=== PATIENT | female | born 1965 | race Caucasian/White ===

== ENCOUNTER 2022-05-14 22:44 | Inpatient (IN) | payer OTHER, SELFPAY ==
[2022-05-14 22:46] VITALS: BP 153/91; PULSE 87; RESP 16; TEMP 37; O2SAT 97; BMI 18.8
[2022-05-14 22:48] VITALS: PULSE 130
[2022-05-15] VITALS (24 sets, daily range): BP systolic 108–165; BP diastolic 60–98; PULSE 79–100; RESP 16–22; TEMP 36.4–37; O2SAT 93–100; BMI 18.1; BMI 18.4
--- NOTE | 2022-05-15 00:11 | PC.NURSE ---
Rechecked pt. No needs voiced at this time.
[2022-05-15 00:33] LABS: Basophils # 0.1 K/mm3 (0-0.2); Basophils % 0.6 % (0.1-2.0); Eosinophils # 0.1 K/mm3 (0.0-0.4); Eosinophils % 0.6 % (0.1-12.0); Hemoglobin 12.3 g/dL (12.2-16.2); Lymphocytes # 2.8 K/mm3 (0.7-4.5); Mean Corpuscular HGB Conc 33.1 g/dL (31.8-35.4); Mean Corpuscular Hemoglobin 33.5 pg (27.0-31.2); Mean Corpuscular Volume 101.1 fl (81-99); Mean Platelet Volume 7.6 fl (7.4-10.4); Monocytes # 1.1 K/mm3 (0.1-1.0); Monocytes % 6.3 % (1.7-9.3); Neutrophils # 13.4 K/mm3 (1.8-7.8); Neutrophils % 76.5 % (37.0-80.0); Platelet Count 724 K/mm3 (142-424); Red Blood Count 3.66 M/mm3 (4.20-5.40); Red Cell Distribution Width 13.8 % (11.5-17.5); White Blood Count 17.5 K/mm3 (4.8-10.8)
[2022-05-15 00:44] LABS: Alanine Aminotransferase 27 U/L (12-78); Albumin/Globulin Ratio 1.7 (1.1-1.8); Alkaline Phosphatase 243 U/L (38-126); Anion Gap 11.6 mEq/L (5-15); Aspartate Amino Transferase 36 U/L (14-36); Bilirubin,Total 0.7 mg/dl (0.2-1.3); Blood Urea Nitrogen 12 mg/dl (7-17); Calcium 8.1 mg/dl (8.4-10.2); Carbon Dioxide 24 mmol/L (22.0-30.0); Creatinine Clearance Estimated 72 mL/min (50-200); Estimated Glomerular Filt Rate 87 ml/min (>60); GFR (African American) 106 ML/MIN (>60); Globulin 2.4 g/dL (1.3-3.2); Glucose 76 mg/dl (74-100); Total Protein,Serum 6.4 g/dl (6.3-8.2)
[2022-05-15 00:50] LABS: Sodium 104 mmol/L (136-145)
[2022-05-15 00:51] LABS: Chloride 71 mmol/L (98-107); Potassium 2.6 mmoL/L (3.5-5.1)
--- NOTE | 2022-05-15 00:52 | PC.NURSE ---
Erika From lab called with critical sod 107 pot 2.6 chloride 71
--- NOTE | 2022-05-15 00:53 | PC.NURSE ---
Devin notified of labs no new orders at this time
[2022-05-15 00:58] LABS: MANUAL DIFFERENTIAL MANUAL DIFFERENTIAL (MANUAL DIFF)
--- NOTE | 2022-05-15 01:16 | HMH.EDRECH ---
Discharge Plan Disposition Patient Disposition: Admitted As Inpatient Chief Complaint: Recheck/Abnormal Lab/Rx Clinical Impressions Clinical Impression: Hyponatremia, Hypokalemia Discharge ED Provider: Devin (ED)Samir HPI General Chief Complaint: Recheck/Abnormal Lab/Rx Stated Complaint: elan labs Time Seen by Provider: 05/15/22 01:17 Mode of Arrival: Ambulatory Source of Information: Patient Limitations: No Limitations Description of Symptoms (Recalled from ER Triage Doc. by RN): pt states have bloodwork done at pcp today and recieved a call and her potassium was low History of Present Illness HPI narrative: pt was seen by pcp and had abn labs and was asked to present to ed - pt unable to give specific hx and denied any c/o except weakness - has had recent admit at other facility for low na and fall - MD complaint: abnormal lab Initial visit (ago): hour(s) Returns today for: called because of abnormal lab/test Context: called for abnormal lab result Associated symptoms: none Related Data Home Medications Medication Instructions Recorded Confirmed aspirin 81 mg chewable tablet 81 mg PO DAILY heart health 05/14/22 05/15/22 magnesium oxide 400 mg (241.3 mg 400 mg PO DAILY Supplement 05/14/22 05/15/22 magnesium) tablet potassium chloride 10 mEq 10 meq PO DAILY Supplement 05/14/22 05/15/22 tablet,extended release amlodipine 5 mg tablet 5 mg PO DAILY hypertension 05/15/22 05/15/22 escitalopram oxalate 5 mg tablet 5 mg PO DAILY Depression 05/15/22 05/15/22 omeprazole 40 mg capsule,delayed 40 mg PO DAILY GERD 05/15/22 05/15/22 release trazodone 50 mg tablet 50 mg PO HS sleep 05/15/22 05/15/22 triamterene 37.5 1 tab PO DAILY Fluid 05/15/22 05/15/22 mg-hydrochlorothiazide 25 mg tablet (Maxzide-25mg) Previous Rx's Medication Instructions Recorded albuterol sulfate 90 mcg/actuation 2 puff inhalation Q4-6H PRN 01/29/22 aerosol inhaler shortness of breath or wheezing #8.5 grams Allergies Allergy/AdvReac Type Severity Reaction Status Date / Time No Known Allergies Allergy Verified 05/14/22 10:57 [facility] Disclaimer: The information contained in this section may have been updated after the patient was seen, as this information can be updated by other users. Medical History Anxiety Asthma Chronic bronchitis GERD (gastroesophageal reflux disease) HBP (high blood pressure) Hypokalemia Hypomagnesemia Hyponatremia Insomnia Family History Other Cancer Diabetes Hypertension Social History Smoking Status: Current every day smoker tobacco type: cigarettes packs per day: 1 second hand exposure: Yes alcohol intake: current current occupational status: employed Travel in the last 8 weeks: None household members: family housing: house current occupation: [employer] current occupational exposures/hazards: No caffeine: Yes ROS Obtained: Yes All systems reviewed & no additional complaints except as documented Physical Exam General General appearance: alert Head Head exam: normocephalic Eye Eye exam: Present PERRL and EOMI ENT ENT exam: Present mucous membranes moist Neck Neck exam: Present trachea midline Respiratory Respiratory exam: Present normal lung sounds bilaterally; Absent respiratory distress Cardiovascular Cardiovascular exam: Present regular rate and systolic murmur Abdominal Exam Abdominal exam: Present soft Neurological Exam Neurological exam: Present alert and CN II-XII intact; Absent motor sensory deficit Psychiatric Psychiatric exam: Present flat affect Skin Skin exam: Absent rash Medical Decision Making Medical Records Medical records reviewed: Yes I reviewed the patient's medical records. Chevy Inquiry Pt receiving controlled substance: No Vital Signs: 0
[2022-05-15 01:17] LABS: Coronavirus 19, PCR Not Detected (NotDetected); Influenza A, PCR Not Detected (NotDetected); Influenza B, PCR Not Detected (NotDetected)
--- NOTE | 2022-05-15 01:22 | PC.NURSE ---
paged dr camarena
--- NOTE | 2022-05-15 01:25 | XR_ITS ---
PROCEDURE INFORMATION: Exam: XR Chest Exam date and time: 05/15/2022 1:39 AM Age: 56 years old Clinical indication: Abnormal findings; Abnormal diagnostic tests; Other: Low potassium TECHNIQUE: Imaging protocol: Radiologic exam of the chest. Views: 1 view. COMPARISON: [facility] CT CHEST W/ CONTRAST 08/01/2015 1:19 PM FINDINGS: Lungs: Unremarkable. No consolidation. Pleural spaces: Unremarkable. No pleural effusion. No pneumothorax. Heart/Mediastinum: Unremarkable. No cardiomegaly. Bones/joints: Unremarkable. IMPRESSION: No acute findings.
[2022-05-15 01:29] LABS: Magnesium 1.6 mg/dl (1.6-2.3)
[2022-05-15 01:30] LABS: Lactic Acid 0.8 mmol/L (0.7-2.1)
--- NOTE | 2022-05-15 01:32 | ECG_ITS ---
APPROVED REPORT Exam: Resting ECG HR:94 bpm ECG Measurements Heart Rate 94 AXES NH 142 P 85 QRSd 84 QRS 64 QT 371 T -33 QTc 423 Conclusion SINUS RHYTHM WITH FREQUENT SUPRAVENTRICULAR PREMATURE COMPLEXES NONSPECIFIC T-WAVE ABNORMALITY ABNORMAL ECG UNCONFIRMED REPORT Electronically signed by : Loc Clements MD 05/15/2022 08:00:01
--- NOTE | 2022-05-15 01:33 | PC.NURSE ---
House notified of pt admission
[2022-05-15 01:42] LABS: Eosinophils % 2 % (0-3); Lymphocytes % 25 % (10-50); Macrocytosis 1+; Monocytes % 2 % (2-9); Neutrophils % 71 % (42-76); Platelet Estimate Normal; Total Cells Counted 100
--- NOTE | 2022-05-15 01:50 | PC.NURSE ---
Pt incontinent. Pt clothes and sheets changed.
[2022-05-15 02:01] LABS: Thyroid Stimulating Hormone 2.51 uIU/mL (0.465-4.68)
[2022-05-15 02:28] LABS: Creatine Kinase 31 U/L (30-135)
--- NOTE | 2022-05-15 02:41 | CT_ITS ---
PROCEDURE INFORMATION: Exam: CTA Chest With Contrast Exam date and time: 05/15/2022 4:14 AM Age: 56 years old Clinical indication: Shortness of breath; Additional info: Shortness of air, hyponatremia TECHNIQUE: Imaging protocol: Computed tomographic angiography of the chest with contrast. 3D rendering (Not supervised by radiologist): MIP and/or 3D reconstructed images were created by the technologist. Radiation optimization: All CT scans at this facility use at least one of these dose optimization techniques: automated exposure control; mA and/or kV adjustment per patient size (includes targeted exams where dose is matched to clinical indication); or iterative reconstruction. Contrast material: ISOVUE; Contrast volume: 70 ml; Contrast route: INTRAVENOUS (IV); Other protocol: This patient has received 0 known CTs and 0 known cardiac nuclear medicine studies in the 12 months prior to the current study. COMPARISON: CR XR CHEST PORTABLE 05/15/2022 1:39 AM FINDINGS: Pulmonary arteries: There is no defect within the central pulmonary vessels. There is some respiratory motion limiting evaluation of the basilar segmental vessels. Aorta: No aortic aneurysm. No aortic dissection. Lungs: There are small alveolar infiltrates in the anterior aspect of the right upper and middle lobe as well as the lingula. There is some peribronchial thickening bilaterally. Assessment of the segmental pulmonary arteries and parenchyma is somewhat limited due to respiratory motion. Pleural spaces: No pneumothorax. No pleural effusion. Heart: No cardiomegaly. No pericardial effusion. Lymph nodes: No enlarged lymph nodes. Bones/joints: There are degenerative changes of the thoracic spine. Soft tissues: Unremarkable. IMPRESSION: 1. There are small alveolar infiltrates in the anterior aspect of the right upper and middle lobe as well as the lingula. There is some peribronchial thickening bilaterally. Assessment of the segmental pulmonary arteries and parenchyma is somewhat limited due to respiratory motion. 2. There is some peribronchial thickening and small anterior alveolar infiltrates. These findings are not specific and can be seen with airways disease. Small patchy areas of pneumonia may be present as well.
[2022-05-15 02:47] LABS: T4 (Thyroxine) 9.8 ug/dl (5.53-11.0)
--- NOTE | 2022-05-15 02:50 | PC.NURSE ---
Pt arrived to floor via wheelchair @ [phone]
--- NOTE | 2022-05-15 03:32 | EXP.HP ---
History of Present Illness *Admission Date: 05/15/22 *Reason for visit:: Abnormal Labs *History of present illness: Ms. Arreola is a 56-year-old female who presented to [facility] due to abnormal labs. Per Review of patient's charts she was recently admitted to [facility] where she was treated for Hyponatremia and a fall. Recommendations were to go to rehab, but she refused. She had lab testing at a PCP office and was informed to report to the ER due to abnormal labs. In the ER the patient underwent a CMP that showed: Na level of 104, K 2.6, Mag was 1.6. CBC showed a WBC of 17.5. On exam the patient is only oriented to person, she is not oriented to place, time or President. She has no family members at bedside on admission and information for her H/P is taken from her medical record and discussion with the ER Physician Dr. Beltran. The patient will be admitted with initial impression: Hyponatremia, SIRS, Hypokalemia and Encephalopathy. Her records will be requested from her recent hospitalization at [place]. [facility] Disclaimer: The information contained in this section may have been updated after the patient was seen, as this information can be updated by other users. Medical History Anxiety Asthma Chronic bronchitis GERD (gastroesophageal reflux disease) HBP (high blood pressure) Hypokalemia Hypomagnesemia Hyponatremia Insomnia Family History Other Cancer Diabetes Hypertension Social History Smoking Status: Current every day smoker tobacco type: cigarettes packs per day: 1 second hand exposure: Yes alcohol intake: current current occupational status: employed Travel in the last 8 weeks: None household members: family housing: house current occupation: [employer] current occupational exposures/hazards: No caffeine: Yes Review of Systems Review of Systems Review of systems:: unable to obtain Meds Home Medications and Allergies Home Medications Medication Instructions Recorded Confirmed Type albuterol sulfate 90 mcg/actuation 2 puff inhalation Q4-6H PRN 01/29/22 05/15/22 Rx aerosol inhaler shortness of breath or wheezing #8.5 grams aspirin 81 mg chewable tablet 81 mg PO DAILY heart health 05/14/22 05/15/22 History magnesium oxide 400 mg (241.3 mg 400 mg PO BID Supplement 05/14/22 05/15/22 History magnesium) tablet potassium chloride 10 mEq 10 meq PO BID potassium replacement 05/14/22 05/15/22 History tablet,extended release amlodipine 5 mg tablet 5 mg PO DAILY hypertension 05/15/22 05/15/22 History escitalopram oxalate 5 mg tablet 5 mg PO DAILY Depression 05/15/22 05/15/22 History omeprazole 40 mg capsule,delayed 40 mg PO DAILY acid reflux 05/15/22 05/15/22 History release trazodone 50 mg tablet 50 mg PO HS sleep 05/15/22 05/15/22 History triamterene 37.5 1 tab PO DAILY Hypertension 05/15/22 05/15/22 History mg-hydrochlorothiazide 25 mg tablet (Maxzide-25mg) New Prescriptions to Start Prescriptions: Allergies Allergy/AdvReac Type Severity Reaction Status Date / Time No Known Allergies Allergy Verified 05/14/22 10:57 Exam Data for Last 24 hours Vital signs and Labs for Last 24 Hours: Temp Pulse Resp BP Pulse Ox 97.6 F 98 H 18 126/76 95 05/15/22 03:15 05/15/22 03:15 05/15/22 03:15 05/15/22 03:15 05/15/22 03:15 Laboratory Results - last 24 hr 05/15/22 00:04: WBC 17.5 H D, RBC 3.66 L, Hgb 12.3, Hct 37.0, MCV 101.1 H, MCH 33.5 H, MCHC 33.1, RDW 13.8, Plt Count 724 H, MPV 7.6, Neut % (Auto) 76.5, Lymph % (Auto) 16.0, [place] % (Auto) 6.3, Eos % (Auto) 0.6, Baso % (Auto) 0.6, Neut # (Auto) 13.4 H, Lymph # (Auto) 2.8, [place] # (Auto) 1.1 H, Eos # (Auto) 0.1, Baso # (Auto) 0.1, Total Counted 100, Neutrophils % (Manual) 71, Lymphocytes % (Manual)
[2022-05-15 06:16] LABS: Chloride 84 mmol/L (98-107); Potassium 3.1 mmoL/L (3.5-5.1)
[2022-05-15 06:19] LABS: Alanine Aminotransferase 21 U/L (12-78); Albumin Level 3.4 g/dl (3.5-5.0); Albumin/Globulin Ratio 1.3 (1.1-1.8); Alkaline Phosphatase 208 U/L (38-126); Anion Gap 11.1 mEq/L (5-15); Aspartate Amino Transferase 25 U/L (14-36); Bilirubin,Total 0.9 mg/dl (0.2-1.3); Blood Urea Nitrogen 10 mg/dl (7-17); Carbon Dioxide 22 mmol/L (22.0-30.0); Creatinine Clearance Estimated 124 mL/min (50-200); Estimated Glomerular Filt Rate 166 ml/min (>60); GFR (African American) 201 ML/MIN (>60); Globulin 2.6 g/dL (1.3-3.2)
[2022-05-15 06:20] LABS: Glucose 65 mg/dl (74-100)
[2022-05-15 06:24] LABS: Sodium 114 mmol/L (136-145)
--- NOTE | 2022-05-15 09:02 | HMH.PHAINT1 ---
Pharmacy Intervention Comments: HOME MEDICATION RECONCILIATION COMPLETED USING LIST FROM OUTPATIENT PHARMACY
--- NOTE | 2022-05-15 09:02 | EXP.PHA.CONS ---
Pharmacy Consult Date: 05/15/22 Time: 09:02 Referring provider: DR. VASQUEZ Reason for Consult:: VANCOMYCIN DOSING Allergies Allergy/AdvReac Type Severity Reaction Status Date / Time No Known Allergies Allergy Verified 05/14/22 10:57 Home Medications Medication Instructions Recorded Confirmed Type albuterol sulfate 90 mcg/actuation 2 puff inhalation Q4-6H PRN 01/29/22 05/15/22 Rx aerosol inhaler shortness of breath or wheezing #8.5 grams aspirin 81 mg chewable tablet 81 mg PO DAILY heart health 05/14/22 05/15/22 History magnesium oxide 400 mg (241.3 mg 400 mg PO BID Supplement 05/14/22 05/15/22 History magnesium) tablet potassium chloride 10 mEq 10 meq PO BID potassium replacement 05/14/22 05/15/22 History tablet,extended release amlodipine 5 mg tablet 5 mg PO DAILY hypertension 05/15/22 05/15/22 History escitalopram oxalate 5 mg tablet 5 mg PO DAILY Depression 05/15/22 05/15/22 History omeprazole 40 mg capsule,delayed 40 mg PO DAILY acid reflux 05/15/22 05/15/22 History release trazodone 50 mg tablet 50 mg PO HS sleep 05/15/22 05/15/22 History triamterene 37.5 1 tab PO DAILY Hypertension 05/15/22 05/15/22 History mg-hydrochlorothiazide 25 mg tablet (Maxzide-25mg) New Prescriptions to Start Prescriptions: Height: 1.63 m Weight: 49.033 kg Laboratory Results:: Laboratory Results - last 24 hr 05/15/22 00:04: WBC 17.5 H D, RBC 3.66 L, Hgb 12.3, Hct 37.0, MCV 101.1 H, MCH 33.5 H, MCHC 33.1, RDW 13.8, Plt Count 724 H, MPV 7.6, Neut % (Auto) 76.5, Lymph % (Auto) 16.0, [place] % (Auto) 6.3, Eos % (Auto) 0.6, Baso % (Auto) 0.6, Neut # (Auto) 13.4 H, Lymph # (Auto) 2.8, [place] # (Auto) 1.1 H, Eos # (Auto) 0.1, Baso # (Auto) 0.1, Total Counted 100, Neutrophils % (Manual) 71, Lymphocytes % (Manual) 25, Monocytes % (Manual) 2, Eosinophils % (Manual) 2, Platelet Estimate Normal, Macrocytosis 1+ 05/15/22 00:04: Sodium 104 L*, Potassium 2.6 L* D, Chloride 71 L, Carbon Dioxide 24, Anion Gap 11.6, BUN 12, Creatinine 0.70 D, Estimated Creat Clear 72, Estimated GFR 87, Est GFR ( Amer) 106 D, Glucose 76, Calcium 8.1 L, Total Bilirubin 0.7, AST 36, ALT 27, Alkaline Phosphatase 243 H, Total Protein 6.4, Albumin 4.0, Globulin 2.4, Albumin/Globulin Ratio 1.7 05/15/22 00:04: Total Creatine Kinase 31 05/15/22 01:13: Lactate 0.8 05/15/22 01:13: SARS-CoV-2 (PCR) Not detected, Influenza A Untype (PCR) Not detected, Influenza Type B (PCR) Not detected 05/15/22 01:13: TSH 2.51, Thyroxine (T4) 9.8 05/15/22 01:13: Magnesium 1.6 05/15/22 05:54: Sodium 114 L*, Potassium 3.1 L, Chloride 84 L, Carbon Dioxide 22, Anion Gap 11.1, BUN 10, Creatinine 0.40 L D, Estimated Creat Clear 124, Estimated GFR 166, Est GFR ( Amer) 201 D, Glucose 65 L, Calcium 8.0 L, Total Bilirubin 0.9, AST 25 D, ALT 21, Alkaline Phosphatase 208 H, Total Protein 6.0 L, Albumin 3.4 L D, Globulin 2.6, Albumin/Globulin Ratio 1.3 Medical History: Medical History (Updated 05/15/22 @ 07:14 by Samir Beltran (ED)MD) Anxiety Asthma Chronic bronchitis GERD (gastroesophageal reflux disease) HBP (high blood pressure) Hypokalemia Hypomagnesemia Hyponatremia Insomnia Assessment and Plan Assessment and plan all Dx Assessment and Plan for all problems:: Pharmacokinetic dosing service Objective: Patient: Floor: Age: 56 yo Serum creatinine: 0.40 mg/dL Height: 64.2 Inches Weight (kg): 49 Assessment: IBW (kg): 55.16 Dosing wt(kg): 49 Estimated Creatinine clearance (ml/min): 124.4 CRCL method: Cockcroft and Gault using ibw(default). Drug selected: Vancomycin Loading dose (mg): Vd (liters): 36.8 (factor used: 0.75 L/kg) Lucio (hr-1): 0.108 Half life (hrs): 6.42 CLvanco=?? 3.974 L/hr Recommended dose: 750 mg Interval: 8 hrs Infusion time (hrs): 2.0 Predicted peak (mcg/mL): 31.7 Predicted trough
--- NOTE | 2022-05-15 09:17 | EXP.PN ---
Subjective *Date: 05/15/22 *Time: 20:08 Interval history: Date of service May 15, 2022 The patient reports no acute events overnight. She reports that she is feeling better. Nursing staff report that she remains afebrile with stable vital signs and saturating appropriately on room air. We have reviewed and discussed her laboratory results. I personally interpreted her CBC with a white blood cell count of 18,000, hemoglobin of 12, hematocrit of 37 and platelet count 724. Her MCV is elevated at 101. I have personally reviewed and interpreted her sodium 114, potassium 3.1, chloride 84 bicarb 22. Her BUN is 10 and her creatinine is 0.4. Exam Data for Last 24 hours Vital signs and Labs for Last 24 Hours: Temp Pulse Resp BP Pulse Ox 97.7 F 87 17 125/69 98 05/15/22 04:00 05/15/22 07:00 05/15/22 07:00 05/15/22 07:00 05/15/22 07:00 Laboratory Results - last 24 hr 05/15/22 00:04: WBC 17.5 H D, RBC 3.66 L, Hgb 12.3, Hct 37.0, MCV 101.1 H, MCH 33.5 H, MCHC 33.1, RDW 13.8, Plt Count 724 H, MPV 7.6, Neut % (Auto) 76.5, Lymph % (Auto) 16.0, [place] % (Auto) 6.3, Eos % (Auto) 0.6, Baso % (Auto) 0.6, Neut # (Auto) 13.4 H, Lymph # (Auto) 2.8, [place] # (Auto) 1.1 H, Eos # (Auto) 0.1, Baso # (Auto) 0.1, Total Counted 100, Neutrophils % (Manual) 71, Lymphocytes % (Manual) 25, Monocytes % (Manual) 2, Eosinophils % (Manual) 2, Platelet Estimate Normal, Macrocytosis 1+ 05/15/22 00:04: Sodium 104 L*, Potassium 2.6 L* D, Chloride 71 L, Carbon Dioxide 24, Anion Gap 11.6, BUN 12, Creatinine 0.70 D, Estimated Creat Clear 72, Estimated GFR 87, Est GFR ( Amer) 106 D, Glucose 76, Calcium 8.1 L, Total Bilirubin 0.7, AST 36, ALT 27, Alkaline Phosphatase 243 H, Total Protein 6.4, Albumin 4.0, Globulin 2.4, Albumin/Globulin Ratio 1.7 05/15/22 00:04: Total Creatine Kinase 31 05/15/22 01:13: Lactate 0.8 05/15/22 01:13: SARS-CoV-2 (PCR) Not detected, Influenza A Untype (PCR) Not detected, Influenza Type B (PCR) Not detected 05/15/22 01:13: TSH 2.51, Thyroxine (T4) 9.8 05/15/22 01:13: Magnesium 1.6 05/15/22 05:54: Sodium 114 L*, Potassium 3.1 L, Chloride 84 L, Carbon Dioxide 22, Anion Gap 11.1, BUN 10, Creatinine 0.40 L D, Estimated Creat Clear 124, Estimated GFR 166, Est GFR ( Amer) 201 D, Glucose 65 L, Calcium 8.0 L, Total Bilirubin 0.9, AST 25 D, ALT 21, Alkaline Phosphatase 208 H, Total Protein 6.0 L, Albumin 3.4 L D, Globulin 2.6, Albumin/Globulin Ratio 1.3 I & O for Last 24 hours: Intake & Output 05/12/22 05/13/22 05/14/22 05/15/22 23:59 23:59 23:59 23:59 Intake Total 0 / 0 Balance 0 / 0 Weight 49.895 kg 49.033 kg Constitutional Constitutional: no acute distress and cooperative *Routine HEENT Exam Head: Present normocephalic Eye: Present EOMI and PERRL ENT: Present mucous membranes moist *Routine Neck Exam Neck: Present supple; Absent lymphadenopathy *Routine Respiratory Exam Respiratory: Present CTA bilaterally, normal respiratory effort and symmetric chest movement *Routine Cardiovascular Exam Cardiovascular: Present RRR *Routine Abdominal Exam Abdominal: Present soft and normoactive bowel sounds; Absent tenderness *Routine Extremities Exam Extremities: Absent cyanosis, clubbing or edema *Routine Skin Exam Skin: Present warm; Absent rash *Routine Neurological Exam Neurological: Present alert, oriented X3, moving all extremities, vision grossly intact, hearing grossly intact and normal speech Routine Psychiatric Exam Psychiatric: Present normal affect, normal thought process, cooperative and good insight Assessment and Plan *Assessment and plan (1) Hyponatremia: Status: Acute Category: Medical Code(s): E87.1 - Hypo-osmolality and hyponatremia (2) SIRS (systemic inflammatory response syndrome): Status: Acute Category: Medical Code(s): R65.10 - Systemic inflammatory response syndrome (SIRS) of non-infectious origin without acute organ dysfunction (3) Encephalopathy:
[2022-05-15 11:07] LABS: Anion Gap 10.7 mEq/L (5-15); Blood Urea Nitrogen 8 mg/dl (7-17); Carbon Dioxide 21 mmol/L (22.0-30.0); Chloride 92 mmol/L (98-107); Creatinine Clearance Estimated 124 mL/min (50-200); Estimated Glomerular Filt Rate 166 ml/min (>60); GFR (African American) 201 ML/MIN (>60); Glucose 51 mg/dl (74-100); Sodium 121 mmol/L (136-145)
[2022-05-15 11:13] LABS: Potassium 2.7 mmoL/L (3.5-5.1)
--- NOTE | 2022-05-15 11:23 | PC.NURSE ---
1113 critical lab values received from Genia in lab. Na 121 k+ 2.7. results pt name and repeated and verified back 1115 face to face reported lab results on pt to Dr Bangura.
--- NOTE | 2022-05-15 15:02 | PC.NURSE ---
verbal order during huddle with MD. neuro checks q4, bmp q4
--- NOTE | 2022-05-15 15:07 | PC.NURSE ---
When able to focus on conversation pt is alert to self and past situation (i.e. what she did/would do at home). when rounding on pt random conversations appear confused. pt stated to nurse after assessment that her feet were cold and she would just walk to [employer] and get her some warm socks. pt was reoriented to her place and situation. it was explained to pt that she was unable to walk to [employer] to get medication. pt still unsure as to why she was unable to walk to [employer].
[2022-05-15 16:09] LABS: Anion Gap 9.6 mEq/L (5-15); Blood Urea Nitrogen 8 mg/dl (7-17); Calcium 7.8 mg/dl (8.4-10.2); Carbon Dioxide 23 mmol/L (22.0-30.0); Chloride 95 mmol/L (98-107); Creatinine Clearance Estimated 83 mL/min (50-200); Estimated Glomerular Filt Rate 104 ml/min (>60); GFR (African American) 126 ML/MIN (>60); Glucose 74 mg/dl (74-100); Potassium 3.6 mmoL/L (3.5-5.1); Sodium 124 mmol/L (136-145)
--- NOTE | 2022-05-15 18:21 | PC.NURSE ---
pt remains on room air, with no complaints of SOA or pain, intermittent confusion noted at times, telemetry has shown SA
[2022-05-16] VITALS (8 sets, daily range): BP systolic 116–149; BP diastolic 65–81; PULSE 66–87; RESP 15–20; TEMP 36.4–37.3; O2SAT 96–100; BMI 18.4
[2022-05-16 00:05] LABS: Anion Gap 6.3 mEq/L (5-15); Blood Urea Nitrogen 7 mg/dl (7-17); Calcium 7.7 mg/dl (8.4-10.2); Carbon Dioxide 22 mmol/L (22.0-30.0); Chloride 99 mmol/L (98-107); Creatinine Clearance Estimated 100 mL/min (50-200); Estimated Glomerular Filt Rate 129 ml/min (>60); GFR (African American) 156 ML/MIN (>60); Glucose 90 mg/dl (74-100); Potassium 3.3 mmoL/L (3.5-5.1); Sodium 124 mmol/L (136-145)
[2022-05-16 03:32] LABS: Anion Gap 7.2 mEq/L (5-15); Blood Urea Nitrogen 6 mg/dl (7-17); Calcium 7.9 mg/dl (8.4-10.2); Carbon Dioxide 23 mmol/L (22.0-30.0); Chloride 98 mmol/L (98-107); Creatinine Clearance Estimated 100 mL/min (50-200); Estimated Glomerular Filt Rate 129 ml/min (>60); GFR (African American) 156 ML/MIN (>60); Glucose 87 mg/dl (74-100); Potassium 3.2 mmoL/L (3.5-5.1); Sodium 125 mmol/L (136-145)
--- NOTE | 2022-05-16 04:29 | PC.NURSE ---
Pt is A&O with periods of confusion. Behaviors also noted. Pt has to be reminded to keep telemetry on. She states she doesn't like it. Pt has been incontinent of urine. Purewick and brief in place. Pt will remove purewick and brief periodically. Education provided. She used profanity with lab staff. VS have been stable. Medications administered per jun.
[2022-05-16 06:12] LABS: Basophils % 0.4 % (0.1-2.0); Eosinophils # 0.1 K/mm3 (0.0-0.4); Eosinophils % 0.8 % (0.1-12.0); Hematocrit 34.1 % (37.0-47.0); Lymphocytes # 1.4 K/mm3 (0.7-4.5); Lymphocytes % 14.8 % (10-50); Mean Corpuscular HGB Conc 32.2 g/dL (31.8-35.4); Mean Corpuscular Hemoglobin 33.6 pg (27.0-31.2); Mean Corpuscular Volume 104.1 fl (81-99); Monocytes # 0.6 K/mm3 (0.1-1.0); Monocytes % 6.3 % (1.7-9.3); Neutrophils # 7.3 K/mm3 (1.8-7.8); Neutrophils % 77.7 % (37.0-80.0); Platelet Count 342 K/mm3 (142-424); Red Blood Count 3.27 M/mm3 (4.20-5.40); Red Cell Distribution Width 13.7 % (11.5-17.5); White Blood Count 9.4 K/mm3 (4.8-10.8)
[2022-05-16 06:34] LABS: Chloride 100 mmol/L (98-107); Sodium 125 mmol/L (136-145)
[2022-05-16 06:35] LABS: Potassium 3.6 mmoL/L (3.5-5.1)
[2022-05-16 06:37] LABS: Blood Urea Nitrogen 5 mg/dl (7-17); Creatinine Clearance Estimated 166 mL/min (50-200); Estimated Glomerular Filt Rate 232 ml/min (>60); GFR (African American) 281 ML/MIN (>60)
[2022-05-16 06:38] LABS: Anion Gap 6.6 mEq/L (5-15); Calcium 7.7 mg/dl (8.4-10.2); Carbon Dioxide 22 mmol/L (22.0-30.0); Glucose 84 mg/dl (74-100)
[2022-05-16 07:10] LABS: Procalcitonin 0.169 ng/mL (0.0-2.0)
[2022-05-16 11:27] LABS: Chloride 101 mmol/L (98-107); Potassium 3.3 mmoL/L (3.5-5.1); Sodium 128 mmol/L (136-145)
[2022-05-16 11:30] LABS: Anion Gap 7.3 mEq/L (5-15); Blood Urea Nitrogen 4 mg/dl (7-17); Calcium 7.9 mg/dl (8.4-10.2); Carbon Dioxide 23 mmol/L (22.0-30.0); Creatinine Clearance Estimated 166 mL/min (50-200); Estimated Glomerular Filt Rate 232 ml/min (>60); GFR (African American) 281 ML/MIN (>60); Glucose 79 mg/dl (74-100)
--- NOTE | 2022-05-16 19:23 | EXP.PN ---
Subjective *Date: 05/16/22 *Time: 19:23 Interval history: Date of service May 16, 2022 The patient reports no acute events overnight. She reports that she is feeling better. We have reviewed and discussed her morning labs. I have personally interpreted her labs as follows: CBC with an improved leukocytoses and white blood cell count of 9.4, hemoglobin 11, hematocrit 34, MCV 104, platelets 342. Electrolytes identify an improved sodium to 128, potassium 3.3, chloride 101, bicarb 23, BUN 4, creatinine 0.3, glucose trend under 100. She is tolerating her IV antibiotic with no adverse events. Exam Data for Last 24 hours Vital signs and Labs for Last 24 Hours: Temp Pulse Resp BP Pulse Ox 98.1 F 66 17 125/73 100 05/16/22 16:00 05/16/22 16:00 05/16/22 16:00 05/16/22 16:00 05/16/22 16:00 Laboratory Results - last 24 hr 05/15/22 23:00: Sodium 124 L, Potassium 3.3 L, Chloride 99, Carbon Dioxide 22, Anion Gap 6.3, BUN 7, Creatinine 0.50 L, Estimated Creat Clear 100, Estimated GFR 129, Est GFR ( Amer) 156 D, Glucose 90 D, Calcium 7.7 L 05/16/22 03:00: Sodium 125 L, Potassium 3.2 L, Chloride 98, Carbon Dioxide 23, Anion Gap 7.2, BUN 6 L, Creatinine 0.50 L, Estimated Creat Clear 100, Estimated GFR 129, Est GFR ( Amer) 156, Glucose 87, Calcium 7.9 L 05/16/22 05:52: Sodium 125 L, Potassium 3.6, Chloride 100, Carbon Dioxide 22, Anion Gap 6.6, BUN 5 L, Creatinine 0.30 L D, Estimated Creat Clear 166, Estimated GFR 232, Est GFR ( Amer) 281 D, Glucose 84, Calcium 7.7 L 05/16/22 05:52: WBC 9.4 D, RBC 3.27 L, Hgb 11.0 L, Hct 34.1 L, MCV 104.1 H, MCH 33.6 H, MCHC 32.2, RDW 13.7, Plt Count 342 D, MPV 7.0 L, Neut % (Auto) 77.7, Lymph % (Auto) 14.8, [place] % (Auto) 6.3, Eos % (Auto) 0.8, Baso % (Auto) 0.4, Neut # (Auto) 7.3, Lymph # (Auto) 1.4, [place] # (Auto) 0.6, Eos # (Auto) 0.1, Baso # (Auto) 0.0 05/16/22 05:52: Procalcitonin 0.169 05/16/22 11:05: Sodium 128 L, Potassium 3.3 L, Chloride 101, Carbon Dioxide 23, Anion Gap 7.3, BUN 4 L, Creatinine 0.30 L, Estimated Creat Clear 166, Estimated GFR 232, Est GFR ( Amer) 281, Glucose 79, Calcium 7.9 L I & O for Last 24 hours: Intake & Output 05/13/22 05/14/22 05/15/22 05/16/22 23:59 23:59 23:59 23:59 Intake Total 790 / 790 495 / 495 Output Total 0 / 0 0 / 0 Balance 790 / 790 495 / 495 Weight 49.895 kg 49.033 kg 49 kg Constitutional Constitutional: no acute distress and cooperative *Routine HEENT Exam Head: Present normocephalic Eye: Present EOMI and PERRL ENT: Present mucous membranes moist *Routine Neck Exam Neck: Present supple; Absent lymphadenopathy *Routine Respiratory Exam Respiratory: Present CTA bilaterally, normal respiratory effort and symmetric chest movement *Routine Cardiovascular Exam Cardiovascular: Present RRR *Routine Abdominal Exam Abdominal: Present soft and normoactive bowel sounds; Absent tenderness *Routine Extremities Exam Extremities: Absent cyanosis, clubbing or edema *Routine Skin Exam Skin: Present warm; Absent rash *Routine Neurological Exam Neurological: Present alert, oriented X3, moving all extremities, vision grossly intact, hearing grossly intact and normal speech Routine Psychiatric Exam Psychiatric: Present normal affect, normal thought process, cooperative and good insight Assessment and Plan *Assessment and plan (1) Hyponatremia: Status: Acute Category: Medical Code(s): E87.1 - Hypo-osmolality and hyponatremia (2) SIRS (systemic inflammatory response syndrome): Status: Acute Category: Medical Code(s): R65.10 - Systemic inflammatory response syndrome (SIRS) of non-infectious origin without acute organ dysfunction (3) Encephalopathy: Status: Acute Category: Medical Code(s): G93.40 - Encephalopathy, unspecified (4) Hypokalemia: Status: Acute Category: Medical Code(s): E87.6 - Hypokalemia (5) Hypomagnesemia: Status: Acute
--- NOTE | 2022-05-16 19:48 | PC.NURSE ---
pt has been resistive to care this shift with confusion at times, remains on room air, no complaints of pain or SOA
[2022-05-16 21:42] LABS: MRSA DNA PCR NEGATIVE
--- NOTE | 2022-05-16 23:40 | PC.NURSE ---
pt pulled out IV right forearm, this RN, Ronit RN from ED, and Change Analyst attempted to place another IV but pt refuses; notified MD Willem MD attempted to place IV without success, stated okay to leave IV out, will switch antibiotics to PO
[2022-05-17] VITALS (9 sets, daily range): BP systolic 122–145; BP diastolic 68–95; PULSE 61–85; RESP 16–20; TEMP 36.4–36.8; O2SAT 98–100; BMI 16.9
[2022-05-17 06:47] LABS: Peripheral Smear Review Scanned Result
[2022-05-17 07:11] LABS: Anion Gap 7.7 mEq/L (5-15); Blood Urea Nitrogen 4 mg/dl (7-17); Calcium 8.2 mg/dl (8.4-10.2); Carbon Dioxide 23 mmol/L (22.0-30.0); Chloride 100 mmol/L (98-107); Creatinine Clearance Estimated 115 mL/min (50-200); Estimated Glomerular Filt Rate 166 ml/min (>60); GFR (African American) 201 ML/MIN (>60); Glucose 80 mg/dl (74-100); Potassium 3.7 mmoL/L (3.5-5.1); Sodium 127 mmol/L (136-145)
[2022-05-17 07:57] LABS: Vitamin B12 425 pg/mL (239-931)
--- NOTE | 2022-05-17 14:07 | EXP.PN ---
Subjective *Date: 05/17/22 *Time: 14:07 Interval history: Date of service May 17, 2022 The patient reports no acute events overnight. Nursing staff report that she remains afebrile with stable vital signs and saturating appropriately on room air. She is inquiring about discharge home. Her sodium is at 127. Her B12 level is normal. Exam Data for Last 24 hours Vital signs and Labs for Last 24 Hours: Temp Pulse Resp BP Pulse Ox 97.9 F 71 16 123/70 100 05/17/22 12:00 05/17/22 12:00 05/17/22 12:00 05/17/22 12:00 05/17/22 12:00 Laboratory Results - last 24 hr 05/15/22 01:13: Serum Osmolality 211 L 05/15/22 04:50: MRSA (PCR) Negative 05/17/22 06:23: Sodium 127 L, Potassium 3.7, Chloride 100, Carbon Dioxide 23, Anion Gap 7.7, BUN 4 L, Creatinine 0.40 L D, Estimated Creat Clear 115, Estimated GFR 166, Est GFR ( Amer) 201 D, Glucose 80, Calcium 8.2 L, Vitamin B12 425 I & O for Last 24 hours: Intake & Output 05/14/22 05/15/22 05/16/22 05/17/22 23:59 23:59 23:59 23:59 Intake Total 790 / 790 495 / 495 240 / 240 Output Total 0 / 0 0 / 0 0 / 0 Balance 790 / 790 495 / 495 240 / 240 Weight 49.895 kg 49.033 kg 49 kg 45.161 kg Microbiology Reports for the Last 24 Hours: Microbiology 05/15/22 05:54 Blood Blood Culture - Preliminary NO GROWTH AFTER 48 HOURS 05/15/22 05:54 Blood Blood Culture - Preliminary NO GROWTH AFTER 48 HOURS 05/15/22 01:13 Blood Blood Culture - Preliminary NO GROWTH AFTER 48 HOURS 05/15/22 01:13 Blood Blood Culture - Preliminary NO GROWTH AFTER 48 HOURS Constitutional Constitutional: no acute distress and cooperative *Routine HEENT Exam Head: Present normocephalic Eye: Present EOMI and PERRL ENT: Present mucous membranes moist *Routine Neck Exam Neck: Present supple; Absent lymphadenopathy *Routine Respiratory Exam Respiratory: Present CTA bilaterally, normal respiratory effort and symmetric chest movement *Routine Cardiovascular Exam Cardiovascular: Present RRR *Routine Abdominal Exam Abdominal: Present soft and normoactive bowel sounds; Absent tenderness *Routine Extremities Exam Extremities: Absent cyanosis, clubbing or edema *Routine Skin Exam Skin: Present warm; Absent rash *Routine Neurological Exam Neurological: Present alert, oriented X3, moving all extremities, vision grossly intact, hearing grossly intact and normal speech Routine Psychiatric Exam Psychiatric: Present normal affect, normal thought process, cooperative and good insight Assessment and Plan *Assessment and plan (1) Hyponatremia: Status: Acute Category: Medical Code(s): E87.1 - Hypo-osmolality and hyponatremia (2) SIRS (systemic inflammatory response syndrome): Status: Acute Category: Medical Code(s): R65.10 - Systemic inflammatory response syndrome (SIRS) of non-infectious origin without acute organ dysfunction (3) Encephalopathy: Status: Acute Category: Medical Code(s): G93.40 - Encephalopathy, unspecified (4) Hypokalemia: Status: Acute Category: Medical Code(s): E87.6 - Hypokalemia (5) Hypomagnesemia: Status: Acute Category: Medical Code(s): E83.42 - Hypomagnesemia Plan 56-year-old female with history of recent hospitalization for hyponatremia and fall presents from PCP office due to abnormal labs. Problems addressed as follows: Hyponatremia Resolving 104 on admission, only oriented to person, unsure of patient's baseline Records show a recent hospitalization at [place], records have been requested Urine sodium, urine osmolality and serum osmolality ordered, euvolemic appearing on exam Concern for SIADH due to extreme levels Hypertonic saline completed Goal no more than 10 mmol correction in 24 hours Monitoring on telemetry CT chest reviewed with conc
[2022-05-18] VITALS (7 sets, daily range): BP systolic 120–145; BP diastolic 67–76; PULSE 64–92; RESP 16–20; TEMP 36.3–36.5; O2SAT 99–100; BMI 17.4
[2022-05-18 07:49] LABS: Anion Gap 5.8 mEq/L (5-15); Blood Urea Nitrogen 4 mg/dl (7-17); Calcium 8.1 mg/dl (8.4-10.2); Carbon Dioxide 23 mmol/L (22.0-30.0); Chloride 99 mmol/L (98-107); Creatinine Clearance Estimated 157 mL/min (50-200); Estimated Glomerular Filt Rate 232 ml/min (>60); GFR (African American) 281 ML/MIN (>60); Glucose 82 mg/dl (74-100); Magnesium 1.5 mg/dl (1.6-2.3); Potassium 3.8 mmoL/L (3.5-5.1); Sodium 124 mmol/L (136-145)
[2022-05-18 07:56] LABS: Basophils % 0.5 % (0.1-2.0); Eosinophils # 0.1 K/mm3 (0.0-0.4); Eosinophils % 1.1 % (0.1-12.0); Hematocrit 30.3 % (37.0-47.0); Hemoglobin 10.3 g/dL (12.2-16.2); Lymphocytes # 1.8 K/mm3 (0.7-4.5); Lymphocytes % 23.6 % (10-50); Mean Corpuscular HGB Conc 33.9 g/dL (31.8-35.4); Mean Corpuscular Hemoglobin 34.2 pg (27.0-31.2); Mean Corpuscular Volume 100.8 fl (81-99); Mean Platelet Volume 7.8 fl (7.4-10.4); Monocytes # 0.6 K/mm3 (0.1-1.0); Monocytes % 7.4 % (1.7-9.3); Neutrophils % 67.3 % (37.0-80.0); Platelet Count 504 K/mm3 (142-424); Red Blood Count 3.01 M/mm3 (4.20-5.40); Red Cell Distribution Width 13.7 % (11.5-17.5); White Blood Count 7.5 K/mm3 (4.8-10.8)
--- NOTE | 2022-05-18 10:22 | PC.NURSE ---
pt gets easily agitated. alert to self only. told staff to get out of her room.
--- NOTE | 2022-05-18 12:06 | EXP.PN ---
Subjective *Date: 05/18/22 *Time: 12:06 Interval history: Date of service 05/18/2022 The patient reports no acute events overnight. Nursing staff report they are concerned she is not following fluid restriction as recommended. They report that she remains afebrile with stable vital signs and saturating appropriately on room air. We have reviewed and discussed her morning labs including a CBC with a resolved leukocytosis and stable hemoglobin. Her morning electrolytes identify sodium 124 with potassium 3.8 magnesium 1.5 BUN of 4 and creatinine 0.3. She is inquiring about discharge home. Exam Data for Last 24 hours Vital signs and Labs for Last 24 Hours: Temp Pulse Resp BP Pulse Ox 97.7 F 75 17 122/71 100 05/18/22 11:06 05/18/22 11:06 05/18/22 11:06 05/18/22 11:06 05/18/22 11:06 Laboratory Results - last 24 hr 05/18/22 06:44: WBC 7.5, RBC 3.01 L, Hgb 10.3 L, Hct 30.3 L, MCV 100.8 H, MCH 34.2 H, MCHC 33.9, RDW 13.7, Plt Count 504 H D, MPV 7.8, Neut % (Auto) 67.3, Lymph % (Auto) 23.6, [place] % (Auto) 7.4, Eos % (Auto) 1.1, Baso % (Auto) 0.5, Neut # (Auto) 5.0, Lymph # (Auto) 1.8, [place] # (Auto) 0.6, Eos # (Auto) 0.1, Baso # (Auto) 0.0 05/18/22 06:44: Sodium 124 L, Potassium 3.8, Chloride 99, Carbon Dioxide 23, Anion Gap 5.8, BUN 4 L, Creatinine 0.30 L D, Estimated Creat Clear 157, Estimated GFR 232, Est GFR ( Amer) 281 D, Glucose 82, Calcium 8.1 L, Magnesium 1.5 L I & O for Last 24 hours: Intake & Output 05/15/22 05/16/22 05/17/22 05/18/22 23:59 23:59 23:59 23:59 Intake Total 790 / 790 495 / 495 1440 / 1440 610 / 610 Output Total 0 / 0 0 / 0 0 / 0 0 / 0 Balance 790 / 790 495 / 495 1440 / 1440 610 / 610 Weight 49.033 kg 49 kg 45.161 kg 46.38 kg Constitutional Constitutional: no acute distress and cooperative *Routine HEENT Exam Head: Present normocephalic Eye: Present EOMI and PERRL ENT: Present mucous membranes moist *Routine Neck Exam Neck: Present supple; Absent lymphadenopathy *Routine Respiratory Exam Respiratory: Present CTA bilaterally, normal respiratory effort and symmetric chest movement *Routine Cardiovascular Exam Cardiovascular: Present RRR *Routine Abdominal Exam Abdominal: Present soft and normoactive bowel sounds; Absent tenderness *Routine Extremities Exam Extremities: Absent cyanosis, clubbing or edema *Routine Skin Exam Skin: Present warm; Absent rash *Routine Neurological Exam Neurological: Present alert, oriented X3, moving all extremities, vision grossly intact, hearing grossly intact and normal speech Routine Psychiatric Exam Psychiatric: Present normal affect, normal thought process, cooperative and good insight Assessment and Plan *Assessment and plan (1) Hyponatremia: Status: Acute Category: Medical Code(s): E87.1 - Hypo-osmolality and hyponatremia (2) SIRS (systemic inflammatory response syndrome): Status: Acute Category: Medical Code(s): R65.10 - Systemic inflammatory response syndrome (SIRS) of non-infectious origin without acute organ dysfunction (3) Encephalopathy: Status: Acute Category: Medical Code(s): G93.40 - Encephalopathy, unspecified (4) Hypokalemia: Status: Acute Category: Medical Code(s): E87.6 - Hypokalemia (5) Hypomagnesemia: Status: Acute Category: Medical Code(s): E83.42 - Hypomagnesemia Plan 56-year-old female with history of recent hospitalization for hyponatremia and fall presents from PCP office due to abnormal labs. Problems addressed as follows: Hyponatremia Resolving 104 on admission, only oriented to person, unsure of patient's baseline Records show a recent hospitalization at [place], records have been requested Urine sodium, urine osmolality and serum osmolality ordered, euvolemic appearing on exam Concern for SIADH due to extreme levels Hypertonic saline completed Goal no more than 10 mmol correction in 24 hours Monitoring on te
--- NOTE | 2022-05-18 19:37 | PC.NURSE ---
attempted to notify hospitalist at [phone] of pt's request for aspirin for headache, informed RN needed to speak with count team clerk and hung up
--- NOTE | 2022-05-18 19:40 | PC.NURSE ---
attempted to notify hospitalist at [phone] of pt's request for aspirin for headache, MD Bangura answered but RN he needed to speak with medical fee clerk and hung up
--- NOTE | 2022-05-18 19:43 | PC.NURSE ---
ward aide called this RN and stated hospitalist numbers are not to be called at this time and to notify MD Lyn Booker via his personal cell phone of any hospitalist needs at this time, notified MD Lyn Booker that pt requested aspirin for a headache but had nothing ordered prn at this time for pain
[2022-05-19] VITALS: BP 126/82; PULSE 73; RESP 16; TEMP 36.4; O2SAT 100
[2022-05-19 04:00] VITALS: BP 141/69; PULSE 67; RESP 16; TEMP 36.3; O2SAT 100; BMI 19.4
[2022-05-19 06:23] LABS: Anion Gap 6.6 mEq/L (5-15); Blood Urea Nitrogen 6 mg/dl (7-17); Carbon Dioxide 22 mmol/L (22.0-30.0); Chloride 99 mmol/L (98-107); Creatinine Clearance Estimated 175 mL/min (50-200); Estimated Glomerular Filt Rate 232 ml/min (>60); GFR (African American) 281 ML/MIN (>60); Glucose 92 mg/dl (74-100); Magnesium 1.5 mg/dl (1.6-2.3); Potassium 3.6 mmoL/L (3.5-5.1); Sodium 124 mmol/L (136-145)
[2022-05-19 06:30] VITALS: PULSE 65; PULSE 69
[2022-05-19 07:35] VITALS: BP 132/64; PULSE 88; RESP 17; TEMP 36.4; O2SAT 100
[2022-05-19 08:00] VITALS: O2SAT 96
[2022-05-19 11:31] VITALS: BP 142/79; PULSE 78; RESP 19; TEMP 36.4; O2SAT 100
--- NOTE | 2022-05-19 12:09 | EXP.DC.SUM ---
General Admission date:: 05/15/22 Discharge date: 05/19/22 HPI HPI HPI: Ms. Arreola is a 56-year-old female who presented to [facility] due to abnormal labs. Per Review of patient's charts she was recently admitted to [facility] where she was treated for Hyponatremia and a fall. Recommendations were to go to rehab, but she refused. She had lab testing at a PCP office and was informed to report to the ER due to abnormal labs. In the ER the patient underwent a CMP that showed: Na level of 104, K 2.6, Mag was 1.6. CBC showed a WBC of 17.5. On exam the patient is only oriented to person, she is not oriented to place, time or President. She has no family members at bedside on admission and information for her H/P is taken from her medical record and discussion with the ER Physician Dr. Beltran. The patient will be admitted with initial impression: Hyponatremia, SIRS, Hypokalemia and Encephalopathy. Her records will be requested from her recent hospitalization at [place]. Hospital Course Hospital Course Hospital Course: The patient was admitted to the medical unit with telemetry monitoring and seizure precautions. She received hypertonic saline initially with a slow upward trend of less than 10 mmol of sodium correction in the first 24 hours. Her encephalopathy resolved and she became interactive with staff. Blood cultures were acquired on admission that identified no growth to date. She was started on antibiotic therapy for concerns of aspiration pneumonia on imaging. Her magnesium and potassium were replaced and trended with identified stability. Fluid restriction was added to her diet. Over the first few days of her admission her sodium trended upward to 128. Nursing staff report and identified noncompliance with fluid restriction and her sodium diminished to 124 but remained stable. The patient identified improvement and inquired about discharge home. The patient reported a chronic history of low sodium and plans to see an signalling and communications engineer on discharge. A follow-up appointment with a local PCP has been made. We recommended salt therapy on discharge until follow-up with her new PCP. I spent 35 minutes in [id number] time with the patient and nursing staff concerning the discharge process. We discussed the admitting diagnoses and hospital course. We discussed identified improvement and the patient's desire to be discharged. We reviewed inpatient studies and imaging. The patient voiced understanding on the importance of follow-up with her primary care provider and specialist(s). The patient plans to be compliant with the medication regimen prescribed and follow-up appointments. She understands that she can return to the emergency department with any sudden changes or concerns. Exam Data for Last 24 hours Vital signs and Labs for Last 24 Hours: Temp Pulse Resp BP Pulse Ox 97.5 F L 78 19 142/79 H 100 05/19/22 11:31 05/19/22 11:31 05/19/22 11:31 05/19/22 11:31 05/19/22 11:31 Laboratory Results - last 24 hr 05/19/22 05:40: Sodium 124 L, Potassium 3.6, Chloride 99, Carbon Dioxide 22, Anion Gap 6.6, BUN 6 L D, Creatinine 0.30 L, Estimated Creat Clear 175, Estimated GFR 232, Est GFR ( Amer) 281, Glucose 92, Calcium 8.0 L, Magnesium 1.5 L I & O for Last 24 hours: Intake & Output 05/16/22 05/17/22 05/18/22 05/19/22 23:59 23:59 23:59 23:59 Intake Total 495 / 495 1440 / 1440 1620 / 1620 840 / 840 Output Total 0 / 0 0 / 0 0 / 0 0 / 0 Balance 495 / 495 1440 / 1440 1620 / 1620 840 / 840 Weight 49 kg 45.161 kg 46.38 kg 51.71 kg Constitutional Constitutional: no acute distress and cooperative *Routine HEENT Exam Head: Present normocephalic Eye: Present EOMI and PERRL ENT: Present mucous membranes moist *Routine Neck Exam Neck: Present supple; Absent lymphadenopathy *Routine Respiratory Exam Respiratory: Present CTA bilaterally, normal respiratory effort and symmetric chest movement *R
--- NOTE | 2022-05-19 12:44 | HMH.PHAINT1 ---
Pharmacy Intervention Comments: Discussed discharge medications with patient. Patient verbalized understanding and had no questions at this time
--- NOTE | 2022-05-20 11:24 | CARE MANAGER ---
Spoke with patient's mother as patient was sleeping. She states patient is doing well. They picked up her medication and are aware of her follow up appointment. IDALIA Hernandez
== END 2022-05-19 12:52 | disposition home or self-care (01) | DRG 70 ==
LOC: ER 23:36 → 2ND 05-15 05:40
PROVIDERS: Nurse Practitioner Family; Admitting Provider Internal Medicine Adolescent Medicine; Emergency Provider Emergency Medicine; PCP Family Medicine; Visit Provider Family Medicine
DX: G93.40 Encephalopathy, unspecified (principal); J18.9 Pneumonia, unspecified organism; E87.1 Hypo-osmolality and hyponatremia; F17.210 Nicotine dependence, cigarettes, uncomplicated; R29.6 Repeated falls; E87.6 Hypokalemia; E83.42 Hypomagnesemia
CPT/HCPCS: 36415; 71045; 71275; 80048; 80053; 82550; 82607; 83605; 83735; 83930; 84145; 84436; 84443; 85007; 85025; 87040; 87641; 93005; 94640; 99285; C9803; J3370; J3475; Q9967; U0003; U0005

== ENCOUNTER → 2022-05-14 23:30 | Outpatient (CLI) | payer MEDICARE, SELFPAY ==
[2022-05-14 19:01] LABS: Basophils # 0.1 K/mm3 (0-0.2); Basophils % 0.6 % (0.1-2.0); Eosinophils % 0.3 % (0.1-12.0); Hematocrit 37.2 % (37.0-47.0); Hemoglobin 12.3 g/dL (12.2-16.2); Lymphocytes # 2.9 K/mm3 (0.7-4.5); Lymphocytes % 23.6 % (10-50); Mean Corpuscular Hemoglobin 34.4 pg (27.0-31.2); Mean Corpuscular Volume 104.4 fl (81-99); Mean Platelet Volume 8.5 fl (7.4-10.4); Monocytes # 0.7 K/mm3 (0.1-1.0); Monocytes % 5.8 % (1.7-9.3); Neutrophils # 8.5 K/mm3 (1.8-7.8); Neutrophils % 69.7 % (37.0-80.0); Red Blood Count 3.56 M/mm3 (4.20-5.40); Red Cell Distribution Width 13.7 % (11.5-17.5); White Blood Count 12.2 K/mm3 (4.8-10.8)
[2022-05-14 19:09] LABS: Platelet Count 761 K/mm3 (142-424)
[2022-05-14 19:16] LABS: Anion Gap 11.5 mEq/L (5-15); Blood Urea Nitrogen 11 mg/dl (7-17); Calcium 8.3 mg/dl (8.4-10.2); Carbon Dioxide 25 mmol/L (22.0-30.0); Chloride 81 mmol/L (98-107); Estimated Glomerular Filt Rate 129 ml/min (>60); GFR (African American) 156 ML/MIN (>60); Glucose 83 mg/dl (74-100); Magnesium 1.6 mg/dl (1.6-2.3); Potassium 3.5 mmoL/L (3.5-5.1)
[2022-05-14 21:28] LABS: Sodium 114 mmol/L (136-145)
--- NOTE | 2022-05-14 21:36 | EXP.EVENT.NO ---
Called by lab about Na level of 114... reviewed Dr Meredith's note.... called patient... she was feeling weak, but was lucid and oriented... advised her to go to nearest ER for admission evaluation.
== END ==
PROVIDERS: PCP Family Medicine; Visit Provider Family Medicine
DX: E83.42 Hypomagnesemia (principal); E87.1 Hypo-osmolality and hyponatremia; E87.6 Hypokalemia; R05.9 Cough, unspecified
CPT/HCPCS: 80048; 83735; 85025

== ENCOUNTER → 2022-06-18 23:44 | Outpatient (CLI) | payer OTHER, SELFPAY ==
[2022-06-18 18:55] LABS: Anion Gap 10.3 mEq/L (5-15); Blood Urea Nitrogen 8 mg/dl (7-17); Calcium 8.5 mg/dl (8.4-10.2); Carbon Dioxide 28 mmol/L (22.0-30.0); Chloride 89 mmol/L (98-107); Estimated Glomerular Filt Rate 166 ml/min (>60); GFR (African American) 201 ML/MIN (>60); Glucose 95 mg/dl (74-100); Potassium 3.3 mmoL/L (3.5-5.1); Sodium 124 mmol/L (136-145)
[2022-06-18 18:56] LABS: Basophils # 0.1 K/mm3 (0-0.2); Basophils % 0.8 % (0.1-2.0); Eosinophils # 0.1 K/mm3 (0.0-0.4); Eosinophils % 1.9 % (0.1-12.0); Hematocrit 35.7 % (37.0-47.0); Hemoglobin 11.4 g/dL (12.2-16.2); Lymphocytes # 2.4 K/mm3 (0.7-4.5); Lymphocytes % 40.4 % (10-50); Mean Corpuscular HGB Conc 31.8 g/dL (31.8-35.4); Mean Corpuscular Hemoglobin 30.5 pg (27.0-31.2); Mean Corpuscular Volume 95.9 fl (81-99); Mean Platelet Volume 7.6 fl (7.4-10.4); Monocytes # 0.7 K/mm3 (0.1-1.0); Monocytes % 10.9 % (1.7-9.3); Neutrophils # 2.7 K/mm3 (1.8-7.8); Platelet Count 688 K/mm3 (142-424); Red Blood Count 3.72 M/mm3 (4.20-5.40); Red Cell Distribution Width 14.2 % (11.5-17.5)
== END ==
PROVIDERS: PCP Family Medicine; Visit Provider Family Medicine
DX: R05.9 Cough, unspecified (principal); E87.1 Hypo-osmolality and hyponatremia
CPT/HCPCS: 80048; 85025

== ENCOUNTER 2023-10-20 10:07 | Outpatient (CLI) | payer OTHER, SELFPAY ==
[2023-10-19 18:36] LABS: Adenovirus,PCR Not Detected (NotDetected); Coronavirus 229E Not Detected (NotDetected); Coronavirus NL63 Not Detected (NotDetected); Coronovirus HKU1,PCR Not Detected (NotDetected)
[2023-10-19 18:37] LABS: Bordetella Pertussis Not Detected (NotDetected); Chlamydophila Pneumoniae, PCR Not Detected (NotDetected); Coronavirus 19, PCR Not Detected (NotDetected); Coronavirus OC43 Not Detected (NotDetected); Human Metapneumovirus Not Detected (NotDetected); Influenza A, PCR Not Detected (NotDetected); Influenza AH1, 2009 Not Detected (NotDetected); Influenza AH1, PCR Not Detected (NotDetected); Influenza AH3,PCR Not Detected (NotDetected); Influenza B, PCR Not Detected (NotDetected); Mycoplasma Pneumoniae, PCR Not Detected (NotDetected); Parainfluenza 1, PCR Not Detected (NotDetected); Parainfluenza 2, PCR Not Detected (NotDetected); Parainfluenza 3, PCR Not Detected (NotDetected); Parainfluenza 4, PCR Not Detected (NotDetected); Respiratory Syncytial Virus Not Detected (NotDetected); Rhinovirus/Enterovirus Not Detected (NotDetected)
== END 2023-10-20 23:59 | disposition home or self-care (01) ==
LOC: LAB.DROPOF 10:08
PROVIDERS: PCP Nurse Practitioner; Visit Provider Nurse Practitioner
DX: J06.9 Acute upper respiratory infection, unspecified (principal)
CPT/HCPCS: 87581; 87632; 87635; 87798